=== PATIENT | male | born 1945 | race Caucasian/White ===

== ENCOUNTER 2016-05-14 09:52 | Emergency (ER) | payer MEDICARE, OTHER ==
[2016-05-14 10:04] VITALS: TEMP 97.5; BMI 30.4
[2016-05-14 10:22] LABS: AUTOMATED BASOPHIL 0.6 % (0-2); AUTOMATED EOSINOPHIL 1.9 % (0-5); AUTOMATED LYMPH 30.8 % (17-44); AUTOMATED MONOCYTE 9.3 % (3-10); AUTOMATED NEUTROPHIL 57.4 % (45-76); MPV 7.3 fL (7.4-10.4)
[2016-05-14] MEDS ORDERED: SODIUM CHLORIDE 0.9% 3 ML FLUSH FLUSH PRN (10:34)
[2016-05-14] MEDS ORDERED: MORPHINE 4 MG/ML INJECTION IV ONE (10:34)
[2016-05-14] MEDS ORDERED: ONDANSETRON HCL 4 MG/2 ML VIAL IV ONE (10:34)
[2016-05-14] MEDS ORDERED: NS 1,000 ML IV ONE (10:34)
[2016-05-14 10:38] LABS: BLOOD UREA NITROGEN 23 MG/DL (9-20); CALCIUM 10.3 MG/DL (8.4-10.2); CALCULATED OSMOLALITY 279 MOs/Kg (270-290); CHLORIDE 104 mEq/L (98-107); GLUCOSE 133 MG/DL (70-99); SODIUM LEVEL 142 mEq/L (137-146)
--- NOTE | 2016-05-14 10:40 | EDPRACDOC ---
- General Information Chief Complaint: Male Urogenital Problems Stated Complaint: KIDNEY PAIN Time Seen by Provider: 05/14/16 10:16 Information Source: Patient Mode Of Arrival: Car Home Medications: Home Medications Ketorolac Tromethamine 10 mg PO Q8H PRN #15 tab 05/04/14 Oxycodone Immediate Release [Oxycodone Immediate Release (OxyIR)] 5 mg PO Q6H PRN #30 tab 05/04/14 Promethazine [Phenergan] 25 mg PO Q4-6H PRN #15 tab 05/04/14 Ciprofloxacin HCl [Cipro] 500 mg PO BID #20 tab 05/14/16 Oxycodone HCl/Acetaminophen [Oxycodone-Acetaminophen 5-325] 1 tab PO Q6 PRN #20 tablet 05/14/16 Promethazine [Phenergan] 25 mg PO Q8H PRN #14 tab 05/14/16 Allergies/Adverse Reactions: Allergies Allergy/AdvReac Type Severity Reaction Status Date / Time codeine Allergy Nausea/Vomi Verified 05/14/16 10:03 ting - History of Present Illness Onset: 08 HPI: Patient reports right lower back pain with radiation to right flank and RLQ. Patient states hx of kidney stones, feels similar. Patient reports pain started about 8:30am. Reports nausea/vomiting, dark urine. No fever, chills. Pain Began: Reports: Spontaneous Oral Intake: Normal Urinary Output: Normal Relevant History of: Reports: Urolithiasis Associated Signs and Symptoms: Reports: Hematuria, Abdominal Pain, Nausea, Vomiting ED Past Medical History - History Reviewed Yes Nurses notes reviewed and agree except as marked - Patient Medical History Cardiac History: Reports: Hypertension Musculoskeletal History: Reports: Arthritis Systemic History: Reports: Cancer (PROSTATE) Surgical History: Reports: Hernia Surgery - Family Medical History Denies: Cancer - Social Medical History Smoking Status: Never smoker ETOH: None Substance Abuse: None Lives In: Home EDM Review of Systems - Review of Systems ROS Negative Except as Marked: Yes All systems reviewed and were negative except as marked Constitutional: No Symptoms Reported Eyes: No Symptoms Reported Ears: No Symptoms Reported Throat: No Symptoms Reported Nose: No Symptoms Reported Mouth: No Symptoms Reported Respiratory: No Symptoms Reported Cardiovascular: No Symptoms Reported Gastrointestinal: Nausea, Pain, Vomiting Genitourinary: Flank Pain Neurological: No Symptoms Reported Musculoskeletal: No Symptoms Reported - Physical Exam Constitutional: Alert (Awake), No apparent distress Oriented to: Time, Person, Place Last recorded Vital Signs: Last Vital Signs Temp 97.5 F 05/14/16 10:03 Pulse 64 05/14/16 10:03 Resp 18 05/14/16 10:03 BP 178/83 05/14/16 10:03 Pulse Ox 100 05/14/16 10:03 Oxygen Pulse Oxygen Saturation 100 O2 Device Room Air Oxygen Flow Rate Fraction of Inspired Oxygen ( FIO2) - HEENT Head: Normal ( normocephalic) Eye Exam: Normal (PERRL, EOMI, Sclera white) Nose: No Symptoms Reported (septum midline) Neck: Normal (FROM, trachea at midline) - Respiratory/Cardiovascular Respiratory: Normal - CTA (BBS clear to auscultation without adventitious sounds ) Cardiovascular: Normal (RRR without murmur, gallop or rub) - GI Auscultation: Normal (NABS) Tenderness: Non tender - Musculoskeletal Back: Normal (Non-Tender) Extremities: Normal (Normal tone, Pulses 2+ No cyanosis or edema, FROM) - Integumentary Skin: Normal, Warm, Dry Lymphatics: Normal (no adenopathy) - Neurologic Memory Impaired: Normal Motor Function: Normal (Normal tone, Pulses 2+ No cyanosis or edema, FROM) Mood Description: Normal Thought: Coherent - Re-evaluation Re-evaluation 1 Re-evaluation Time: 12:12 Discussed results with patient and need for followup. Medications for home discussed. Return for symptoms. - Results 05/14/16 10:08 05/14/16 10:08 WBC 5.7 xk/uL (3.8-10.8) 05/14/16 10:08 RBC 5.52 xM/uL (4.70-6.10) 05/14/16 10:08 Hgb 17.7 g/dL (14.0-18.0) 05/14/16 10:08 Hct 51.0 % (42-52) 05/14/16 10:08 MCV 92 fL (80-94) 05/14/16 10:08 MCH 32.0 pg (27-32) 05/14/16 10:08 MCHC 34.7 g/dl (33-36) 05/14/16 10:08 RDW 13.4 % (11.5-14.5) 05/14/16 10:08 Plt Count 159 xk/uL (130-400) 05/14/16 10:08 MPV 7.3 fL (7.4-10.4) L 05/14/16 10:08 Neut % (Auto) 57.4 % (45-76) 05/14/16 10:08 Lymph % (Auto) 30.8 % (17-44) 05/14/16 10:08 [place] % (Auto) 9.3 % (3-10) 05/14/16 10:08 Eos % (Auto) 1.9 % (0-5) 05/14/16 10:08 Baso % (Auto) 0.6 % (0-2) 05/14/16 10:08 Absolute Neuts (auto) 3.25 xk/uL (1.7-8.2) 05/14/16 10:08 Absolute Lymphs (auto) 1.71 xk/uL (0.65-4.75) 05/14/16 10:08 Lab Results 05/14/16 10:08 WBC 5.7 RBC 5.52 Hgb 17.7 Hct 51.0 MCV 92 MCH 32.0 MCHC 34.7 RDW 13.4 Plt Count 159 MPV 7.3 L Neut % (Auto) 57.4 Lymph % (Auto) 30.8 [place] % (Auto) 9.3 Eos % (Auto) 1.9 Baso % (Auto) 0.6 Absolute Neuts (auto) 3.25 Absolute Lymphs (auto) 1.71 Decision Time to Discharge: 12:12 - Departure Disposition: Home Condition: Stable Final Diagnosis: Urolithiasis Qualifiers: Urinary calculus location: other lower urinary tract location Qualified Code(s) : N21.8 - Other lower urinary tract calculus Instructions: Kidney Stones (ED) Education/Counseling Given To: Patient Education/Counseling Given Regarding: Diagnosis, Treatment, Prognosis, Follow Up Referrals: None,No Provider [NonStaff] - One Week Tommy Luna MD [Staff Physician] - 1-2 days Prescriptions: New Ciprofloxacin HCl [Cipro] 500 mg PO BID #20 tab Oxycodone HCl/Acetaminophen [Oxycodone-Acetaminophen 5-325] 1 tab PO Q6 PRN # 20 tablet PRN Reason: Pain Promethazine [Phenergan] 25 mg PO Q8H PRN #14 tab PRN Reason: Nausea/Vomiting No Action Ketorolac Tromethamine 10 mg PO Q8H PRN #15 tab PRN Reason: Pain Oxycodone Immediate Release [Oxycodone Immediate Release (OxyIR)] 5 mg PO Q6H PRN #30 tab PRN Reason: Pain Promethazine [Phenergan] 25 mg PO Q4-6H PRN #15 tab PRN Reason: Nausea/Vomiting Additional Instructions: Please followup with a Urologist as discussed. Drink plenty of water at home, strain your urine. Return to ED if symptoms worsen/change or concerns arise. Followup with PCP in 1-2days.
[2016-05-14 10:45] LABS: RBC/URINE TNTC (0-2)
[2016-05-14 11:25] LABS: URINE OCCULT BLOOD 3+ (NEG/TRACE)
[2016-05-14 11:26] LABS: LEUKOCYTES/URINE NEG (NEGATIVE); NITRITE/URINE NEG (NEGATIVE)
--- NOTE | 2016-05-14 11:33 | DIRPT ---
CLINICAL DATA: Right flank pain for 3 hours EXAM: CT ABDOMEN AND PELVIS WITHOUT CONTRAST TECHNIQUE: Multidetector CT imaging of the abdomen and pelvis was performed following the standard protocol without IV contrast. COMPARISON: 05/04/14 FINDINGS: Lower chest: Clear Hepatobiliary: Status post cholecystectomy Pancreas: Normal Spleen: Normal Adrenals/Urinary Tract: Normal adrenal glands. 3 cm midpole left renal cyst. Two lower pole left renal stones measuring 1 mm each. 3.5 cm upper pole right renal cyst. Moderately severe right hydroureteronephrosis, nephro megaly, and perinephric inflammation. 5 mm stone distal right ureter about 3 cm proximal to the ureterovesical junction. Bladder decompressed. Stomach/Bowel: Small hiatal hernia. Nonobstructive bowel gas pattern. Mild diverticulosis distal large bowel. Vascular/Lymphatic: Mild calcification of the aortoiliac vessels. Reproductive: Penile prosthesis noted with pump left lower quadrant Other: No ascites Musculoskeletal: No acute findings IMPRESSION: Acute obstructive nephropathy on the right due to 5 mm stone distal right ureter Electronically Signed By: Twan Chavez M.D. On: 05/14/2016 11:30
[2016-05-14] MEDS ORDERED: HYDROmorphone 1 MG INJECTION IV ONE (11:35)
[2016-05-14] MEDS ORDERED: PROMETHAZINE 25 MG/ML VIAL IV ONE (11:37)
[2016-05-14 12:59] VITALS: BP 168/78; PULSE 84
[2016-05-14] MEDS ORDERED: SODIUM CHLORIDE 0.9% 3 ML FLUSH FLUSH SCH (18:00)
== END 2016-05-14 13:12 | disposition home or self-care (01) ==
LOC: ED 09:52
DX: N21.8 Other lower urinary tract calculus (principal); Z87.442 Personal history of urinary calculi
CPT/HCPCS: 36415; 74176; 80053; 81001; 85025; 96361; 96374; 96375; 99284; J1170; J2270; J2405; J2550

== ENCOUNTER → 2016-05-17 | Day surgery (SDC) | payer OTHER ==
[2016-05-14 10:04] VITALS: BMI 30.4
[~2016-05-17] MED LIST: CEFAZOLIN 1 GM VIAL ONE; DEXAMETHASONE 4 MG/ML VIAL IV ONE; FENTANYL 100 MCG/2 ML VIAL IV PRN; FENTANYL 250 MCG/5 ML VIAL IV ONE; GLYCOPYRROLATE 1 MG VIAL IM ONE; ISOVUE-300 (61%) 50 ML ONE; LABETALOL 20 MG/4 ML SYRINGE IV PRN; MEPERIDINE 25 MG/ML TUBEX IV PRN; METOCLOPRAMIDE 10 MG/2 ML VIAL IV PRN; MIDAZOLAM 2 MG/2 ML VIAL IV ONE; ONDANSETRON HCL 4 MG ODT TAB PO PRN; ONDANSETRON HCL 4 MG/2 ML VIAL IV ONE; ONDANSETRON HCL 4 MG/2 ML VIAL IV PRN; PROPOFOL 200 MG/20 ML VIAL IV ONE; hydrALAZINE 20 MG/ML VIAL IV PRN
--- NOTE | 2016-05-17 13:50 | HIM.ANES ---
Anesthesia Evaluation & Plan Diagnoses: right ureter stone with obstruction Consented Procedure: CYSTOSCOPY, RIGHT RETROGRADE PYELOGRAM, URETEROSCOPY, LASER LITHOTRIPSY AND DOUBLE J STENT Surgeon:: Tommy Luna - Focused Review of Systems Cardiac History: Yes: Hx Hypertension, Hx Cardiac Disorders, Hx Abnormal Cholesterol/Hyperlipidemia No: Hx Coronary Artery Bypass Graft, Hx Deep Vein Thrombosis HEENT: Yes: Hx Vision Problem (READING GLASSES), Other HEENT Problems No: Loose/Decaying Teeth, Removable Dental Work, Temporomandibular Joint Disease (TMJ) Hx Other HEENT Surgery: EYE SURGERY, CRYOGENICS Respiratory: Yes: Hx Sleep Apnea, Hx CPAP Dependent Gastrointestinal: Yes: Hx Gastrointestinal Disorders, Hx Colonoscopy No: Hx Gastroesophageal Reflux Disease Neurological/Musculoskeletal: No: HX Cerebrovascular Accident, Hx Transient Ischemic Attacks (TIA), Hx Neurological Disorders Psychological: No Hx Mental/Emotional Disorders Blood/Autoimmune: Yes: Hx Blood Transfusions (AUTOLOGOUS) Smoking Status: Never smoker Hx Stress Test (date): Yes Hx Echocardiogram (date): Yes Other Surgical History: EYE SURGERY, CRYOGENICS RADICAL PROSTATECTOMY - Focused Physical Exam NPO since: 05/16/161929 Neck: Limited Range of Motion Dental: Other (chipped bottom tooth) Cardiovascular/Chest: Normal (RRR no mumurs or rubs.) Respiratory: Lungs clear. negative: Rhonchi, Wheezing Any problems with anesthesia, including nausea and vomiting?: No Any relatives with a history of Malignant Hyperthermia?: No Does patient have a history of Malignant Hyperthermia?: No Beta Griffin given (if appropriate): N/A Does the patient have a history of Motion Sickness-: No Other: Problem List Problem Status Onset Urolithiasis Acute Allergies Allergy/AdvReac Type Severity Reaction Status Date / Time codeine Allergy Nausea/Vomi Verified 05/17/16 11:54 ting Home Medications Medication Instructions Recorded Last Taken Type Ciprofloxacin HCl [Cipro] 500 mg PO BID #20 tab 05/14/16 05/17/16 07:30 Rx Promethazine [Phenergan] 25 mg PO Q8H PRN #14 tab 05/14/16 05/17/16 07:30 Rx Multivitamin [Multivitamins] 1 each PO DAILY 05/17/16 4 Days Ago History [place]-3 Fatty Acids/Fish Oil [Fish 1 each PO BID 05/17/16 4 Days Ago History Oil 1,000 mg Capsule] Oxycodone HCl/Acetaminophen 1 tab PO Q6H PRN 05/17/16 05/17/16 12:55 History [Percocet 5-325 mg Tablet] Height and Weight Patient's height 5 ft 6 in Patient's weight 85.411 kg BMI 30.4 Vital Signs Temperature 99.7 F 05/17/16 12:01 Pulse Rate 109 05/17/16 12:01 Respiratory Rate 18 05/17/16 12:01 Blood Pressure 169/86 05/17/16 12:01 Pulse Oxygen Saturation 95 05/17/16 12:01 METS - Level of Activity: Climbing stairs(1 flight),walking level ground, running short distance - Anesthetic Plan Anesthesia Type: General ASA Class: 2 -: I have examined this patient and reviewed the medical record. The patient has been assessed prior to anesthesia. Risks and benefits of anesthesia and anesthetic technique options have been discussed and all questions answered. The patient accepts the risk and desires me to proceed with the planned anesthetic.
[2016-05-17 15:29] VITALS: TEMP 98.3
--- NOTE | 2016-05-17 15:46 | SC.ANESPOS ---
Post-Anesthesia Note LOC: Fully Awake Post-Anesthesia Assessment: Awake, Returned to Baseline, Hemodynamically Stable , Pain Control Adequate Phase I & II Recovery Complete: Yes Apparent Anesthesia Complication: No : N - Vital Signs Blood Pressure: 140/67 Pulse: 96 Resp Rate: 18 O2 Sat: 92 Temp: 98.3 F
[2016-05-17 16:44] VITALS: BP 132/60; PULSE 98
--- NOTE | 2016-05-18 12:04 | HIMOPRPT ---
DATE OF PROCEDURE: 05/18/16 PREOPERATIVE DIAGNOSIS: [Right ureteral stone]. POSTOPERATIVE DIAGNOSIS: [Same]. PROCEDURE PERFORMED: Cystoscopy, [right retrograde pyelogram,and bladder stone extraction. ANESTHESIA: General by LMA ANESTHESIOLOGIST: Jack. SURGEON: Tommy Luna MD PROCEDURE IN DETAIL: The patient was brought to the operating room and placed in supine position. General anesthesia by LMA was given. Once adequate level of anesthesia was obtained, the patient was placed in lithotomy position. Genitalia was prepped and draped in usual sterile manner. The cystoscopy was carried down through [23] size of operative cystoscope. The meatus, the distal urethra, and prostatic urethra there were all within normal range and normal limits.Bladder interior was examined. Both ureteral orifices were seen. . [Right retrograde pyelogram was carried out through 5-[place] cone-tipped ureteral catheter which was introduced without any difficulty. Contrast went up to the renal pelvis.There was no stone seen.The stone which was at the UVJ fell into the bladder and was irrigated out with Nathan syringe.. The patient was then returned to the recovery room in stable and satisfactory condition. Discharge Medications:[].Levaquin 500mg daily for 7 days. Follow-up: The patient will be seen in the office for the follow up
--- NOTE | 2016-05-18 12:18 | PCM.UROPRO ---
Post Op Day #: 1 Post-op Assessment: Reports: Feels better, Nausea, Vomiting (vomited small amount couple of times), Catheter draining WNL - Physical Exam Vital Signs: Temperature: 98.3 F (05/17/16 15:46) HR: 98 (05/17/16 16:05) RR: 18 (05/17/16 16:05) BP: 140/67 (05/17/16 15:46) Pulse Ox: 94 (05/17/16 16:05) General: Alert, Oriented x3, Cooperative, No acute distress Respiratory: Normal - CTA Cardiovascular: Regular rate Gastrointestinal: Distended (softly distended), Bowel Sounds (not active at present), Other (dressing intact.) Genitourinary: Catheter in Place Musculoskeletal/Extremities: Other (no calf tenderness.) Skin: Warm,Dry and Intact Plan: Mobilize out of bed and walk in the room. Will keep him on icechis only today and will start reglan IV.
== END ==
LOC: SDC 11:20
PROVIDERS: ATTEND Urology
PROC: 0TC68ZZ Extirpation of Matter from Right Ureter, Via Natural or Artificial Opening Endoscopic (ICD-10-PCS; principal; 2016-05-17 14:40)
DX: N20.1 Calculus of ureter (principal); I10 Essential (primary) hypertension; E78.5 Hyperlipidemia, unspecified; G47.30 Sleep apnea, unspecified; Z79.899 Other long term (current) drug therapy; Z85.46 Personal history of malignant neoplasm of prostate; Z92.3 Personal history of irradiation
CPT/HCPCS: 52352; J0690; J1100; J2250; J2405; J3010; J3490